=== PATIENT | female | born 1985 | race Caucasian/White ===

== ENCOUNTER 2018-04-27 02:21 | Inpatient (IN) | payer BC ==
[2018-04-27] MEDS ORDERED: ALUM & MAG HYDROX-SIMETHICONE 30 ML, LIDOCAINE VISCOUS 2% 15 ML PO ONE ×2 (02:43)
[2018-04-27] MEDS ORDERED: MORPHINE SULFATE INJ 10 MG/ML VIAL IV ONE ×3 (02:43→08:11)
[2018-04-27] MEDS ORDERED: SUCRALFATE 1 GM/10 ML 1 GM UD PO ONE (02:43)
--- NOTE | 2018-04-27 02:43 | ED.PDOC ---
History of Present Illness - General Chief Complaint: Abdominal Pain Stated Complaint: woke up with "my stomach hurting" Time Seen by Provider: 04/27/18 02:29 Information Source: patient Exam Limitations: no limitations - History of Present Illness Initial Comments: Darlene Jernigan 32 y/o female stated that she woke up about 30-60 minutes ago with constant sharp pains epigastrium radiating down to her lower abdomen.No nausea/vomiting,had loose stools once tonight,no dysuria or constipation.Had sme symptoms in the past treated for GE reflux and was scheduled for sonogram but did not show up for test and since then no repeat episode except for tonight. Abdominal Pain Onset Location: other - lower abdomen Pain Radiation: periumbilical Quality: moderate, sharpness, steady Timing/Duration: 1-3 hours Improving Factors: nothing Worsening Factors: nothing Associated Symptoms: other - see hpi Review of Systems - Review of Systems Constitutional: States: no symptoms reported EENTM: States: no symptoms reported Respiratory: States: no symptoms reported Cardiology: States: no symptoms reported Gastrointestinal/Abdominal: States: see HPI Genitourinary: States: no symptoms reported Musculoskeletal: States: no symptoms reported Skin: States: no symptoms reported Neurological: States: no symptoms reported Past Medical History (General) - Patient Medical History Hx Diabetes: Yes - GDM Hx Renal Disease: No Surgical History: no surgical history - Social History Hx Substance Use: No Hx Physical Abuse: No Hx Emotional Abuse: No - Activities of Daily Living Patient Lives Alone: No - Female History Hx Last Menstrual Period: 04/12/13 Patient : No Family Medical History - Family History Mother Hx Family Hypertension: Yes Hx Family Diabetes: Yes Hx Family;Other: DAD-multiple sclerosis Maternal Family History: No Known Physical Exam - Physical Exam General Appearance: Alert, Comfortable, No apparent distress Eyes, Ears, Nose, Throat Exam: normal ENT inspection Neck: non-tender, supple, normal inspection Respiratory: chest non-tender, lungs clear, normal breath sounds, no respiratory distress Cardiovascular/Chest: normal peripheral pulses, regular rate, rhythm, no murmur Peripheral Pulses: No deficit Gastrointestinal/Abdominal: normal bowel sounds, soft, tenderness - epigastium and mid abdomen Back Exam: no CVA tenderness, no vertebral tenderness Extremity: no pedal edema, no calf tenderness Neurologic: alert, oriented x 3 Skin Exam: normal color, warm/dry Progress - Progress Progress: 04/27/18 05:45 04/27/18 02:43 IV Care:Saline Lock per Protoc QSHIFT CARDIAC ENZYME GROUP Stat COMPLETE METABOLIC PROFILE Stat LIPASE Stat 04/27/18 02:46 HCG,QUALITATIVE URINE Stat Laboratory Results - last 24 hr 04/27/18 04/27/18 04/27/18 02:40 02:43 02:43 WBC 9.3 RBC 4.99 Hgb 14.6 Hct 43.1 MCV 86.4 MCH 29.2 MCHC 33.8 RDW 13.7 Plt Count 288 MPV 7.8 Absolute Neuts (auto) 6.00 Absolute Lymphs (auto) 2.10 Absolute Monos (auto) 0.70 Absolute Eos (auto) 0.40 Absolute Basos (auto) 0.10 Neutrophils % 64.6 Lymphocytes % 23.0 Monocytes % 7.2 Eosinophils % 4.1 Basophils % 1.1 Sodium 138 Potassium 3.4 L Chloride 102 Carbon Dioxide 25 Anion Gap 14.4 BUN 22 H Random Glucose 114 H Serum Osmolality 279.9 Calcium 9.4 Total Bilirubin 0.5 AST 20 ALT 32 Alkaline Phosphatase 49 Creatine Kinase 93 CK-MB (CK-2) 1.3 CK-MB (CK-2) % Not Reportable Troponin I < 0.02 Serum Total Protein 7.5 Albumin 4.4 Globulin 3.1 Albumin/Globulin Ratio 1.4 Serum HCG, Qual Urine Color Yellow Urine Appearance Clear Urine pH 5.5 Ur Specific [place] >= 1.030 Urine Protein Negative Urine Glucose (UA) Negative Urine Ketones 15 H Urine Blood Small H Urine Nitrite Negative Urine Bilirubin Negative Urine Urobilinogen 0.2 Ur Leukocyte Esterase Negative Urine RBC 3-5 H Urine WBC 1-3 Ur Epithelial Cells 5-10 Urine Bacteria 0 04/27/18 04:24 WBC RBC Hgb Hct MCV MCH MCHC RDW Plt Count MPV Absolute Neuts (auto) Absolute Lymphs (auto) Absolute Monos (auto) Absolute Eos (auto) Absolute Basos (auto) Neutrophils % Lymphocytes % Monocytes % Eosinophils % Basophils % Sodium Potassium Chloride Carbon Dioxide Anion Gap BUN Random Glucose Serum Osmolality Calcium Total Bilirubin AST ALT Alkaline Phosphatase Creatine Kinase CK-MB (CK-2) CK-MB (CK-2) % Troponin I Serum Total Protein Albumin Globulin Albumin/Globulin Ratio Serum HCG, Qual Negative Urine Color Urine Appearance Urine pH Ur Specific [place] Urine Protein Urine Glucose (UA) Urine Ketones Urine Blood Urine Nitrite Urine Bilirubin Urine Urobilinogen Ur Leukocyte Esterase Urine RBC Urine WBC Ur Epithelial Cells Urine Bacteria - Results/Orders Results/Orders: Vital Signs - 8 hr 04/27/18 04/27/18 02:38 03:22 Temperature 97.9 F Pulse Rate [ 94 H 52 L Right] Respiratory 18 Rate Blood Pressure 139/100 106/68 [Left Arm] O2 Sat by Pulse 96 Oximetry - EKG/XRAY/CT CT Ordered: Yes - abd/p-appendicolith,mildly dilated appendix 8-9 mm Departure - Departure Clinical Impression: Appendicolith Abdominal pain Qualifiers: Abdominal location: lower abdomen, unspecified Qualified Code(s): R10.30 - Lower abdominal pain, unspecified Time of Disposition: 05:48 Disposition: Admit Patient Condition: Good Departure Forms: Patient Portal Self Enrollment Referrals: Rowdy Robles MD [Primary Care Provider] - 1-2 Weeks Home Medications: Ambulatory Orders Vit W/ Docusate-Fe Fu [Pnv Ferrous Fumarate/Docu 29-1 mg] 1 tab PO DAILY 12/20/13 HYDROcodone 5MG/APAP 325MG [[place] 5/325] 1 tab PO .Q8 PRN #10 tab 12/22/13 Ibuprofen [Motrin] 600 mg PO .Q8 PRN #20 tab 12/22/13 Decision To Admit - Decistion To Admit Decision to Admit Reason: Admit from ER Decision to Admit Date: 04/27/18 - D/W Dr. Mccann-Surgeon Decision to Admit Time: 05:47
[2018-04-27] MEDS ORDERED: ALUM & MAG HYDROX-SIMETHICONE 30 ML UD ONE (03:00)
[2018-04-27] MEDS ORDERED: LIDOCAINE HCL 2% (MOUTH-THROAT) 15 ML UD ONE (03:00)
[2018-04-27] MEDS: HYOSCYAMINE SULFATE 0.5 MG/ML VIAL IV ONE ×2 (03:07→06:32)
--- NOTE | 2018-04-27 04:47 | CT ---
CT abdomen and pelvis without contrast on 04/27/2018 CLINICAL INDICATION: Upper abdominal pain TECHNIQUE: Multiple axial images are obtained throughout the abdomen and pelvis without the administration of contrast. This exam was performed according to our departmental dose-optimization program, which includes automated exposure control, adjustment of the mA and/or kV according to patient size and/or use of iterative reconstruction technique. Total DLP is 1280.77 mGy*cm. COMPARISON: None FINDINGS: Abdomen: There is minimal basilar atelectasis. The lung bases are otherwise clear. There are no renal or ureteral stones and no hydronephrosis. The unenhanced solid abdominal organs are unremarkable. There is no abdominal adenopathy. There is a tiny umbilical hernia containing only fat. There is no free fluid or free air within the abdomen. The abdominal portion of the GI tract is unremarkable. Pelvis: Appendicoliths are noted within the appendiceal base. The appendix is mildly dilated measuring 8-9 mm in diameter. There is no significant fat stranding but the appearance raises a question of early acute appendicitis. If surgery is not initially considered would recommend short-term follow-up CT with IV and oral contrast. Intrauterine device is noted in the uterus. Pelvic organs otherwise appear unremarkable by CT. There is no free fluid in the pelvis. There is no pelvic adenopathy. Pelvic portion of the GI tract is otherwise unremarkable. No bony abnormality is noted. IMPRESSION: 1. Appendicoliths within a mildly dilated appendix raising a question of early acute appendicitis. If surgery is not initially considered, would recommend at least close clinical follow-up and short-term follow-up CT with IV and oral contrast could better evaluate. 2. Otherwise no acute abnormality. Electronically signed by: Venancio Lawrence 04/27/2018 4:46 AM CDT
--- NOTE | 2018-04-27 07:01 | HP ---
CHIEF COMPLAINT: Abdominal pain. HISTORY OF PRESENT ILLNESS: The patient is a healthy 32-year-old female who was in her normal state of health until yesterday when she did not really feel well. Early this morning, after midnight, she developed abdominal pain in the lower abdomen. There was no nausea or vomiting. She did have one bout of loose stool yesterday. There is no one else at home that is sick. She has had no previous episodes of like illness, but was scheduled for an ultrasound for abdominal discomfort which she failed to get. PAST MEDICAL HISTORY: 1. Childbirth times 2. 2. Diabetes associated with her pregnancies. PAST SURGICAL HISTORY: She has had no other surgeries. CURRENT MEDICATIONS: She takes no medications. ALLERGIES: NO KNOWN DRUG ALLERGIES. FAMILY HISTORY: Positive for hypertension, diabetes, multiple sclerosis and possibly ulcerative colitis in her maternal grandmother. SOCIAL HISTORY: She is and works for [employer]. She does not use illicit drugs, does not smoke. She drinks rarely. REVIEW OF SYSTEMS: Noncontributory except for a history of chronic constipation and intermittently loose stools with lower abdominal pain. There is no history of hematemesis, hematochezia. She has no urinary tract symptoms. She has no shortness of breath or chest pain. PHYSICAL EXAMINATION: GENERAL: The patient is awake, alert, cooperative, in minimal distress. VITAL SIGNS: The patient is currently afebrile, normotensive. HEENT: Sclerae nonicteric. Mucous membranes moist. CHEST: Equal breath sounds bilaterally. HEART: Regular rate and rhythm. ABDOMEN: Soft. There is tenderness in the right lower quadrant with some mild guarding. PELVIC/RECTAL: Deferred. EXTREMITIES: Without cyanosis, clubbing or edema. LABORATORY: White count is normal at 9.3 with 64% neutrophils. Hemoglobin 14.6 , platelet count 288,000. Glucose 114. Potassium 3.4. CK, CK-MB within normal limits. Troponin within normal limits. HCG was negative. Urine specific gravity greater than 1.030. Otherwise, there were 3 to 5 red cells, 1 to 3 while cells, no bacteria. Leukocyte esterase was negative. CT scan of the abdomen reveals appendix mildly dilated with appendicolith, but no inflammatory changes or free fluid around it. No free air or other inflammatory changes noted. ASSESSMENT: 1. Right lower quadrant abdominal pain, most likely early appendicitis. PLAN: The risks, benefits and alternatives to laparoscopic appendectomy versus antibiotic treatment for early appendicitis were discussed with the patient in the presence of her . Their decision is to proceed with appendectomy and this will be done today. She was also given IV Mefoxin and has been NPO. #[id number] [facility]
[2018-04-27] MEDS ORDERED: MORPHINE SULFATE INJ 10 MG/ML VIAL ONE (07:46)
[2018-04-27] MEDS: LACTATED RINGERS 1,000 ML IVS PRN ×2 (09:14→21:16)
[2018-04-27] MEDS ORDERED: cefOXitin SODIUM 2 GM INJ IVPB ONE ×3 (09:15→19:39)
[2018-04-27] MEDS ORDERED: SODIUM CHL 0.9% 50ML MIN-BAG+ 50 ML IVPB ONE ×3 (09:15→19:38)
[2018-04-27] MEDS: cefOXitin SODIUM 2 GM in SODIUM CHL 0.9% 50ML MIN-BAG+ 50 ML IVPB SCH ×2 (09:16→17:31)
[2018-04-27] MEDS ORDERED: PROPOFOL 200 MG/20 ML VIAL IV ONE (10:00)
[2018-04-27] MEDS ORDERED: LIDOCAINE 1% 10 ML VIAL INJ ONE (10:00)
[2018-04-27] MEDS ORDERED: raNITIdine HCL INJ 25 MG/ML VIAL IV ONE (10:00)
[2018-04-27] MEDS ORDERED: ONDANSETRON INJ 4 MG/2 ML VIAL IV ONE (10:00)
[2018-04-27] MEDS ORDERED: HYDROmorphone HCL INJ 2 MG/ML VIAL ONE (11:20)
[2018-04-27] MEDS ORDERED: HYDROmorphone HCL INJ 2 MG/ML VIAL IV ONE (11:20)
[2018-04-27] MEDS ORDERED: MIDAZOLAM INJ 2 MG/2 ML VIAL ONE (11:25)
[2018-04-27] MEDS ORDERED: fentaNYL CITRATE INJ 50 MCG/ML AMP ONE (11:26)
[2018-04-27] MEDS ORDERED: ROCURONIUM BROMIDE 10 MG/ML VIAL ONE (11:32)
[2018-04-27] MEDS ORDERED: SUCCINYLCHOLINE CHLORIDE 200 MG/10 ML VIAL ONE (11:33)
[2018-04-27] MEDS ORDERED: SUGAMMADEX SODIUM 200 MG/2 ML VIAL IV ONE (11:34)
[2018-04-27] MEDS ORDERED: SODIUM CHLORIDE 0.9% (FLUSH) 10 ML SYG IV PRN (11:55)
[2018-04-27] MEDS ORDERED: IV SET AND CAP CHANGE INJ INJ SCH (12:00)
[2018-04-27] MEDS ORDERED: BUPIVACAINE 0.25% W/EPI 50 ML VIAL INJ ONE (13:15)
[2018-04-27] MEDS ORDERED: ONDANSETRON INJ 4 MG/2 ML VIAL IV PRN (14:03)
[2018-04-27] MEDS ORDERED: LACTATED RINGERS 1,000 ML ONE (14:11)
--- NOTE | 2018-04-27 14:30 | OP ---
DATE OF PROCEDURE: 04/27/18 PREOPERATIVE DIAGNOSIS: 1. Right lower quadrant abdominal pain. 2. Abnormal CT scan suspicious for appendicitis and with an appendicolith. POSTOPERATIVE DIAGNOSIS: 1. Right lower quadrant abdominal pain. 2. Abnormal CT scan suspicious for appendicitis and with an appendicolith. 3. Acute appendicitis. PROCEDURE: 1. Laparoscopic appendectomy. SURGEON: Maynor Mccann MD. DISTRIBUTION OPERATIONS MANAGER: None. ANESTHESIA: General endotracheal anesthesia and local infiltration of 0.25% Marcaine with epinephrine. INDICATION: The patient is a 32-year-old female who did not feel well yesterday. Early this morning, she developed abdominal pain and presented to the Emergency Room with a normal white count, no fever, but CT scan was ordered which revealed the changes of swelling of the appendix and an appendicolith. She was admitted, hydrated intravenously, started on Mefoxin and was brought to the Surgical Suite this afternoon for laparoscopic appendectomy after the risks , benefits and alternatives of the procedure were discussed and accepted by the patient in the presence of her . FINDINGS: The appendix was indurated, somewhat distended. The appendicolith could be palpated distal to the staple line. No other pathology was identified. A small amount of purulent drainage which was removed using a 4x4. PROCEDURE: After adequate general endotracheal anesthesia was obtained, the patient was prepped and draped in the usual sterile manner. A surgical time- out was taken. The infraumbilical area was infiltrated with local anesthesia. A curvilinear incision was fashioned and carried down through the subcutaneous tissue to the midline fascia using blunt dissection. Traction sutures were placed on either side of the midline. A small incision was made in the midline fascia. The peritoneum was opened bluntly. Oseas trocar was introduced under direct vision into the abdominal cavity and fixed in place with a 20 mL balloon. CO2 was then insufflated until a pressure of 12 mmHg was reached and the abdomen was tympanitic in all four quadrants. When this was done, the laparoscope was introduced. The patient was then placed in the Trendelenburg position. The pelvis and right lower quadrant were inspected. At this point, suprapubic 5-mm trocar was placed under direct vision in the usual manner. The right lower quadrant was explored and the appendix was identified. At this point, the left lower quadrant port was placed under direct vision. When this was done, the appendix was elevated. The mesoappendix was divided bluntly at the base of the appendix and the Endo-JEFF with a vascular load was introduced and the base of the appendix was stapled. When this was done, a second firing was performed on the mesoappendix. The appendix was brought out through the left lower quadrant port in an EndoCatch bag under direct vision in the usual manner. When this was done, the right lower quadrant was inspected. There was some bleeding and 4x4 was placed over it and held with pressure. The blood was removed with the 4x4 and a second 4x4 was run into the pelvis and removed the small amount of seropurulent fluid. The sponges were removed. Again, the base of the appendix was inspected. Adequate hemostasis was noted there. At this point, the left lower quadrant port was removed under direct vision and the port site fascia was closed with two simple sutures of 0 Vicryl placed using the EndoClose device. When these were tightened and tied, hemostasis was noted to be good. At this point, the suprapubic port was removed under direct vision. Adequate hemostasis was noted. At this point, the CO2, the laparoscope and the infraumbilical port were removed. The infraumbilical port site fascia was approximated with a single [id number] suture of 0 Vicryl. Subcutaneous tissues were all irrigated copiously with saline. Skin edges were loosely stapled with the skin stapler. Sterile dressings were applied. The patient was awakened and taken to the Recovery Room in stable condition. Estimated blood loss was 25 mL. All sponge, needle and instrument counts were correct. #[id number] [facility]
[2018-04-27] MEDS: ENOXAPARIN SODIUM 40 MG/0.4 ML SYG SUBCU SCH (15:00)
[2018-04-27] MEDS: HYDROmorphone HCL INJ 2 MG/ML VIAL IV PRN ×3 (15:00→21:19)
[2018-04-27] MEDS: PANTOPRAZOLE SODIUM IV 40 MG VIAL IV SCH (15:00)
[2018-04-28] MEDS: HYDROmorphone HCL INJ 2 MG/ML VIAL IV PRN ×8 (00:11→23:18)
[2018-04-28] MEDS: cefOXitin SODIUM 2 GM in SODIUM CHL 0.9% 50ML MIN-BAG+ 50 ML IVPB SCH ×3 (01:07→18:08)
[2018-04-28] MEDS: LACTATED RINGERS 1,000 ML IVS PRN ×3 (04:15→18:20)
[2018-04-28] MEDS ORDERED: SODIUM CHL 0.9% 50ML MIN-BAG+ 50 ML IVPB ONE ×2 (07:20→18:06)
[2018-04-28] MEDS ORDERED: cefOXitin SODIUM 2 GM INJ IVPB ONE ×2 (07:20→18:07)
[2018-04-28] MEDS: ENOXAPARIN SODIUM 40 MG/0.4 ML SYG SUBCU SCH (09:21)
[2018-04-28] MEDS ORDERED: MAGNESIUM HYDROXIDE 30 ML UD PO ONE (11:11)
[2018-04-28] MEDS: PANTOPRAZOLE SODIUM IV 40 MG VIAL IV SCH (14:37)
[2018-04-29] MEDS ORDERED: cefOXitin SODIUM 2 GM INJ IVPB ONE ×2 (00:23→07:29)
[2018-04-29] MEDS ORDERED: SODIUM CHL 0.9% 50ML MIN-BAG+ 50 ML IVPB ONE ×2 (00:23→07:28)
[2018-04-29] MEDS: cefOXitin SODIUM 2 GM in SODIUM CHL 0.9% 50ML MIN-BAG+ 50 ML IVPB SCH ×2 (01:15→08:46)
[2018-04-29] MEDS: HYDROmorphone HCL INJ 2 MG/ML VIAL IV PRN ×3 (02:49→08:46)
[2018-04-29] MEDS: LACTATED RINGERS 1,000 ML IVS PRN (03:10)
[2018-04-29] MEDS ORDERED: MAGNESIUM HYDROXIDE 30 ML UD PO ONE (03:35)
[2018-04-29] MEDS ORDERED: METOCLOPRAMIDE HCL INJ 10 MG/2 ML VIAL IV ONE (03:35)
[2018-04-29] MEDS: ENOXAPARIN SODIUM 40 MG/0.4 ML SYG SUBCU SCH (08:46)
[2018-04-29 10:19] VITALS: BP 129/76; TEMP 98.4; O2SAT 96
--- NOTE | 2018-04-29 10:34 | DS ---
FINAL DIAGNOSIS: 1. Acute appendicitis pending pathology report. SURGICAL PROCEDURE: On 04/27/18, the patient underwent laparoscopic appendectomy. HISTORY OF PRESENT ILLNESS: The patient is a healthy 32-year-old female who was in her normal state of health until yesterday when she did not really feel well. Early this morning, after midnight, she developed abdominal pain in the lower abdomen. There was no nausea or vomiting. She did have one bout of loose stool yesterday. There is no one else at home that is sick. She has had no previous episodes of like illness, but was scheduled for an ultrasound for abdominal discomfort which she failed to get. LABORATORY: On the day prior to discharge, her white count was 5,900 with 63% neutrophils. Hemoglobin 12.5, platelet count 235,000. HOSPITAL COURSE: The patient was admitted to the Floor from the Emergency Room. She was hydrated and given IV Mefoxin. Later that afternoon, she was brought to the Surgical Suite where she underwent the laparoscopic appendectomy without difficulty. Mcfarland catheter was removed postoperatively. By the next morning, she was tolerating clear liquids, taking pain medicine on a routine basis. She was afebrile. Her white count was normal. She had no fever. She was tolerating clear liquids, but had not passed flatus and was quite uncomfortable. She was given a dose of Milk of Magnesia later that night, she passed gas later that afternoon. Overnight, she developed some heartburn and was given another dose of Milk of Magnesia and a dose of Reglan. She had multiple bowel movements and the second postoperative morning, she was discharged home. CONDITION AT DISCHARGE: Improved. PROGNOSIS: Excellent pending pathology report. DISCHARGE PLAN: She was discharged home on a regular diet and told to push fluids. She was told she can shower, but not tub bath. She was told she can ambulate, but do no lifting or exercise. She is appointed to come back and see me on 05/09/18 at 2:30 in the afternoon. She is discharged with a prescription for Ceftin for 8 doses and Tylenol #3 as needed for pain. She is instructed to call me if she develops nausea, vomiting, fever, chills, increasing abdominal pain, drainage from her wounds or has other questions or problems. #[id number] [facility]
== END 2018-04-29 11:40 | disposition home or self-care (01) | DRG 343 ==
LOC: ER 02:21 → MS 06:59 → OBSVTOIN 06:59
PROVIDERS: ADMIT Surgery; ATTEND Surgery
PROC: 0DTJ4ZZ Resection of Appendix, Percutaneous Endoscopic Approach (ICD-10-PCS; principal; 2018-04-27 12:54)
DX: K35.80 Unspecified acute appendicitis (principal); K59.09 Other constipation

== ENCOUNTER → 2018-05-17 | Outpatient (CLI) | payer BC ==
--- NOTE | 2018-05-17 11:57 | US ---
EXAM DESCRIPTION: Right upper quadrant abdominal sonogram limited CLINICAL HISTORY: UNSPECIFIED ABDOMINAL PAIN COMPARISON: CT abdomen and pelvis April 27, 2018 TECHNIQUE: Right upper quadrant ultrasound was performed. FINDINGS: Pancreas: Visualized portions of the pancreas are unremarkable. Bowel gas obscures some areas. Aorta/inferior vena cava: No aortic aneurysm. Normal inferior vena cava. Liver: The liver is homogeneous in texture with normal echogenicity of the hepatic parenchyma. No focal liver lesion or intrahepatic bile duct dilatation. No liver surface irregularity. Normal appearance of the portal vein and hepatic veins. Gallbladder: Gallbladder appears normal in size with single echogenic focus nondependent consistent with a polyp 3 mm. No stones with shadowing. No gallbladder wall thickening Common bile duct: Normal caliber measuring 5.3 mm. Right kidney: Renal length is 12 cm. Normal cortical echogenicity. Cortical thickness is normal. No hydronephrosis is seen. No renal mass or shadowing calculus. IMPRESSION: 3 mm polyp in the gallbladder. Otherwise unremarkable sonogram of the right upper abdomen. Electronically signed by: Ok Warner MD 05/17/2018 11:55 AM CDT
== END ==
LOC: US 09:31
PROVIDERS: ATTEND General Practice
DX: R10.9 Unspecified abdominal pain (principal); K82.4 Cholesterolosis of gallbladder

== ENCOUNTER 2019-11-24 10:55 | Emergency (ER) | payer BC ==
--- NOTE | 2019-11-24 11:25 | ED.PDOC ---
History of Present Illness - General Chief Complaint: Abdominal Pain Stated Complaint: Abd pain and diarrhea Time Seen by Provider: 11/24/19 11:20 Information Source: patient Exam Limitations: no limitations Additional Information: Pt says she's had abd pain since Wednesday (5 days ago). She also reports watery stool. She says she has discomfort with BM. She also feels urinary urgency, but no dysuria. She denies F/C. She says her periods are "normally not normal," and have been unchanged. Pt denies vaginal discharge. Pt says it is worsened with eating. She's been on diet since last January. She says her IUD has been out of position for "several years," and there are plans soon to take her to OR to find the IUD. - History of Present Illness Abdominal Pain Onset Location: generalized abdomen Review of Systems - Review of Systems Constitutional: States: no symptoms reported. Denies: chills, fever, malaise EENTM: States: no symptoms reported Respiratory: States: no symptoms reported Cardiology: States: no symptoms reported Gastrointestinal/Abdominal: States: abdominal pain, diarrhea. Denies: constipation, nausea, vomiting Genitourinary: Denies: discharge, dysuria, frequency, hematuria Musculoskeletal: States: no symptoms reported Skin: States: no symptoms reported Neurological: States: no symptoms reported Endocrine: States: no symptoms reported Hematologic/Lymphatic: States: no symptoms reported Past Medical History (General) - Patient Medical History Hx Seizures: No Hx Stroke: No Hx Dementia: No Hx Asthma: No Hx of COPD: No Hx Cardiac Disorders: No Hx Congestive Heart Failure: No Hx Pacemaker: No Hx Hypertension: No Hx Thyroid Disease: No Hx Diabetes: No Hx Gastroesophageal Reflux: No Hx Renal Disease: No Hx Cancer: No Hx of HIV: No Hx Hepatitis C: No Hx MRSA: No - Vaccination History Hx Tetanus, Diphtheria Vaccination: No Hx Influenza Vaccination: No Hx Pneumococcal Vaccination: No - Social History Hx Tobacco Use: No Hx Alcohol Use: No Hx Substance Use: No Hx Substance Use Treatment: No Hx Depression: No Hx Physical Abuse: No Hx Emotional Abuse: No - Female History Hx Last Menstrual Period: 04/12/13 Patient : No Expected Date of Delivery:: 12/26/13 Family Medical History - Family History Maternal Family History: No Known Mother Hx Family Hypertension: Yes Hx Family Diabetes: Yes Hx Family;Other: DAD-multiple sclerosis Physical Exam - Physical Exam General Appearance: Alert, Comfortable, No apparent distress, Well Developed, Well Groomed, Well Hydrated, Well Nourished Eyes, Ears, Nose, Throat Exam: normal ENT inspection Neck: full range of motion, supple, normal inspection Respiratory: chest non-tender, lungs clear, normal breath sounds, no respiratory distress, no accessory muscle use Cardiovascular/Chest: normal peripheral pulses, regular rate, rhythm, no edema, no gallop, no JVD, no murmur Gastrointestinal/Abdominal: normal bowel sounds, soft, no organomegaly, no pulsatile mass, tenderness - Diffuse Neurologic: alert, normal mood/affect, oriented x 3 Skin Exam: normal color Progress - Progress Progress: 11/24/19 13:16 11/24/19 11:21 Hold Metformin x 48Hrs [id number] Laboratory Results - last 24 hr 11/24/19 11/24/19 11/24/19 11:29 11:29 11:29 WBC 5.8 RBC 5.30 Hgb 15.3 Hct 45.4 MCV 85.7 MCH 28.9 MCHC 33.7 RDW 13.6 Plt Count 311 MPV 8.0 Absolute Neuts (auto) 3.80 Absolute Lymphs (auto) 1.50 Absolute Monos (auto) 0.40 Absolute Eos (auto) 0.10 Absolute Basos (auto) 0.00 Neutrophils % 65.3 Lymphocytes % 25.9 Monocytes % 6.4 Eosinophils % 1.7 Basophils % 0.7 Sodium 138 Potassium 3.7 Chloride 102 Carbon Dioxide 28 Anion Gap 11.7 L BUN 16 Creatinine 0.68 BUN/Creatinine Ratio 23.5 H Random Glucose 72 Serum Osmolality 275.4 Calcium 9.5 Total Bilirubin 0.5 AST 39 ALT 74 H Alkaline Phosphatase 118 Serum Total Protein 8.1 Albumin 4.5 Globulin 3.6 H Albumin/Globulin Ratio 1.3 Lipase 30 Serum HCG, Qual Negative Urine Color Urine Appearance Urine pH Ur Specific [place] Urine Protein Urine Glucose (UA) Urine Ketones Urine Blood Urine Nitrite Urine Bilirubin Urine Urobilinogen Ur Leukocyte Esterase Urine RBC Urine WBC Ur Epithelial Cells Urine Bacteria 11/24/19 11:34 WBC RBC Hgb Hct MCV MCH MCHC RDW Plt Count MPV Absolute Neuts (auto) Absolute Lymphs (auto) Absolute Monos (auto) Absolute Eos (auto) Absolute Basos (auto) Neutrophils % Lymphocytes % Monocytes % Eosinophils % Basophils % Sodium Potassium Chloride Carbon Dioxide Anion Gap BUN Creatinine BUN/Creatinine Ratio Random Glucose Serum Osmolality Calcium Total Bilirubin AST ALT Alkaline Phosphatase Serum Total Protein Albumin Globulin Albumin/Globulin Ratio Lipase Serum HCG, Qual Urine Color Yellow Urine Appearance Clear Urine pH 7.0 Ur Specific [place] 1.015 Urine Protein Negative Urine Glucose (UA) Negative Urine Ketones Negative Urine Blood Trace-intact H Urine Nitrite Negative Urine Bilirubin Negative Urine Urobilinogen 0.2 Ur Leukocyte Esterase Negative Urine RBC 0 Urine WBC 0 Ur Epithelial Cells 10-20 Urine Bacteria 1+ Findings Reporting MD: Nicola Bagley Fellow MD: Not available Dictation Time: Pulp Grinder Feeder: Not available Lawn Mower Sharpener Date: EXAM DESCRIPTION: Abdomen/Pelvis w/Contrast CLINICAL HISTORY: abd pain COMPARISON: April 27, 2018 TECHNIQUE: Postcontrast CT images of the abdomen and pelvis are obtained using standard imaging protocol. This exam was performed according to our departmental dose-optimization program, which includes automated exposure control, adjustment of the mA and/or kV according to patient size and/or use of iterative reconstruction technique . FINDINGS: Lung bases are unremarkable. The liver, spleen, pancreas, adrenal glands, and contracted gallbladder are unremarkable. Abdominal vasculature are unremarkable. Kidneys show normal cortical enhancement. No nephrolithiasis. No ureteral calcification or obstruction. Urinary bladder is normally distended and unremarkable. T-shaped IUD is seen in the endometrial canal of the uterus. The ovaries are unr emarkable. Postsurgical changes from interval appendectomy are seen. Stomach is contracted and unremarkable. No small bowel obstruction or bowel wall thickening is seen. The descending to sigmoid colon is decompressed. Mild scattered diverticuli. Hyperdense diverticulum in the left lower quadrant sigmoid colon seen with mild adjacent mesenteric fat stranding. No free intraperitoneal air. No abnormal drainable fluid collections. No pathologic lymphadenopathy. Osseous structures show no aggressive bony lesions. IMPRESSION: Mild scattered colon diverticulosis. [facility] [employer] [address] [facility] [place], [place] T [phone] [email or web address] - Report exported on Nov 24, 2019 13:18:08 [id number] - Page 2 of 2 Mild fat stranding in the mesentery associated with hyperdense diverticulum in the sigmoid colon in the left lower pelvis suggesting mild uncomplicated acute diverticulitis. Interval appendectomy changes. Other findings are stable from previous Electronically signed by: Nicola Bagley MD 11/24/2019 12:50 PM CDT Workstation: [id number] 11/24/19 13:47 Discussed all results with pt. I recommended d/c of Bactrim and that I would rx new abx's. I asked that she speak to her PCP about referral to GI. Pt expressed understanding and had no further questions. On discharge, pt was in no distress and had unremarkable VS's. Departure - Departure Clinical Impression: Diverticulitis large intestine, History of appendectomy, Diverticulitis Time of Disposition: 13:49 Disposition: Discharge to Home or Self Care Condition: Good Departure Forms: ED Discharge - Pt. Copy, Patient Portal Self Enrollment Instructions: DI for Abdominal Pain-Adult Diet: resume usual diet Activity: increase activity as tolerated Referrals: Rowdy Robles MD [Active Staff] - 1-2 Weeks Prescriptions: Ondansetron Tab [Zofran Tab] 4 mg PO Q6HRS #14 tab Tramadol HCl [Ultram] 50 mg PO Q6HRS #20 tab Ciprofloxacin [Cipro] 500 mg PO BID #14 tab Metronidazole [Flagyl] 375 mg PO TID #21 cap Home Medications: Ambulatory Orders BuPROPion SR [Wellbutrin SR] 11/24/19 Ciprofloxacin [Cipro] 500 mg PO BID #14 tab 11/24/19 Metronidazole [Flagyl] 375 mg PO TID #21 cap 11/24/19 Ondansetron Tab [Zofran Tab] 4 mg PO Q6HRS #14 tab 11/24/19 Tramadol HCl [Ultram] 50 mg PO Q6HRS #20 tab 11/24/19 cloNAZepam [Klonopin] 11/24/19
--- NOTE | 2019-11-24 12:51 | CT ---
EXAM DESCRIPTION: Abdomen/Pelvis w/Contrast CLINICAL HISTORY: abd pain COMPARISON: April 27, 2018 TECHNIQUE: Postcontrast CT images of the abdomen and pelvis are obtained using standard imaging protocol. This exam was performed according to our departmental dose-optimization program, which includes automated exposure control, adjustment of the mA and/or kV according to patient size and/or use of iterative reconstruction technique . FINDINGS: Lung bases are unremarkable. The liver, spleen, pancreas, adrenal glands, and contracted gallbladder are unremarkable. Abdominal vasculature are unremarkable. Kidneys show normal cortical enhancement. No nephrolithiasis. No ureteral calcification or obstruction. Urinary bladder is normally distended and unremarkable. T-shaped IUD is seen in the endometrial canal of the uterus. The ovaries are unremarkable. Postsurgical changes from interval appendectomy are seen. Stomach is contracted and unremarkable. No small bowel obstruction or bowel wall thickening is seen. The descending to sigmoid colon is decompressed. Mild scattered diverticuli. Hyperdense diverticulum in the left lower quadrant sigmoid colon seen with mild adjacent mesenteric fat stranding. No free intraperitoneal air. No abnormal drainable fluid collections. No pathologic lymphadenopathy. Osseous structures show no aggressive bony lesions. IMPRESSION: Mild scattered colon diverticulosis. Mild fat stranding in the mesentery associated with hyperdense diverticulum in the sigmoid colon in the left lower pelvis suggesting mild uncomplicated acute diverticulitis. Interval appendectomy changes. Other findings are stable from previous Electronically signed by: Nicola Bagley MD 11/24/2019 12:50 PM CDT
[2019-11-24 14:10] VITALS: BP 142/95; TEMP 98.8; O2SAT 98
== END 2019-11-24 14:10 | disposition home or self-care (01) ==
LOC: ER 10:55
DX: K57.32 Diverticulitis of large intestine without perforation or abscess without bleeding (principal)

== ENCOUNTER 2020-02-11 12:44 | Emergency (ER) | payer SELFPAY ==
[2020-02-11] MEDS ORDERED: IBUPROFEN 200 MG TAB PO ONE (13:23)
--- NOTE | 2020-02-11 13:58 | CT ---
PROCEDURE: CT Head Without Intravenous Contrast CLINICAL INDICATION: The patient is 34 years old and is Female; rt sided headache, subj rt sided weakness MAIN TECHNIQUE: Axial computed tomography images of the head/brain without intravenous contrast. Sagittal and coronal reformatted images were created and reviewed. This CT exam was performed using one or more of the following dose reduction techniques: automated exposure control, adjustment of the mA and/or kV according to patient size, and/or use of iterative reconstruction technique. COMPARISON: No relevant prior studies available. FINDINGS: BRAIN: Unremarkable. No acute intracranial hemorrhage identified. No significant white matter disease. No edema. The mac/white matter differentiation is intact. No intra- or extra-axial fluid collections are seen. MIDLINE SHIFT: None. VENTRICLES: No acute abnormality identified. No hydrocephalus. BONES/JOINTS: Unremarkable. No calvarial fracture. SOFT TISSUES: The soft tissues of the scalp are unremarkable. SINUSES: The visualized paranasal sinuses are clear. MASTOID AIR CELLS: Unremarkable as visualized. No mastoid effusion. IMPRESSION: No acute intracranial abnormality identified. Electronically signed by: Stephon Camara MD 02/11/2020 1:57 PM CDT
--- NOTE | 2020-02-11 15:19 | ED.PDOC ---
History of Present Illness - General Chief Complaint: Headache Time Seen by Provider: 02/11/20 12:48 Source: patient Exam Limitations: no limitations - History of Present Illness Initial Comments: The patient is a 34-year-old female presented emergency room secondary to headache that is worsened over the last couple of days. The patient was seen 3 days ago with her primary care doctor secondary to concern for possible early Cristobal's palsy on the right. At that point in time the patient was having more pain to the lateral upper aspect of her orbit. No vision changes. No pain with extraocular movements. She is also having some pain in her right ear around that time. No rash. The patient has a mild temperature elevation of 100.2 here today. No rhinorrhea. No change in taste. No real focal neurological changes otherwise. On physical exam today there may be a very slight asymmetry in her smile with a very slight deficit towards the right. No difficulty with closing her eyes. She is able to move move her forehead normally. No gait instability. No other focal neurological changes. No change in vision. The patient is also concerned because her father and apparently her paternal aunt both had multiple sclerosis. Timing/Duration: other - 3 days Severity: moderate Improving Factors: nothing Worsening Factors: nothing Associated Symptoms: headaches, malaise Allergies/Adverse Reactions: Allergies Eggs or Egg-derived Products Allergy (Mild, Verified 02/11/20 13:00) Home Medications: Ambulatory Orders BuPROPion SR [Wellbutrin SR] 150 mg PO BID 11/24/19 cloNAZepam [Klonopin] 0.5 mg PO PRN 11/24/19 Acyclovir [Zovirax] 400 mg PO DAILY 02/11/20 Prednisone 10 mg PO BID 02/11/20 Prednisone 20 mg PO TID 02/11/20 Review of Systems - Review of Systems Constitutional: States: malaise EENTM: States: see HPI Respiratory: States: no symptoms reported Cardiology: States: no symptoms reported Gastrointestinal/Abdominal: States: no symptoms reported Genitourinary: States: no symptoms reported Musculoskeletal: States: no symptoms reported Skin: States: no symptoms reported Neurological: States: see HPI Endocrine: States: no symptoms reported All other Systems: No Change from Baseline Past Medical History (General) - Patient Medical History Hx Seizures: No Hx Stroke: No Hx Dementia: No Hx Asthma: No Hx of COPD: No Hx Cardiac Disorders: No Hx Congestive Heart Failure: No Hx Pacemaker: No Hx Hypertension: No Hx Thyroid Disease: No Hx Diabetes: No Hx Gastroesophageal Reflux: No Hx Renal Disease: No Hx Cancer: No Hx of HIV: No Hx Hepatitis C: No Hx MRSA: No Surgical History: appendectomy - Vaccination History Hx Tetanus, Diphtheria Vaccination: No Hx Influenza Vaccination: No Hx Pneumococcal Vaccination: No - Social History Hx Tobacco Use: No Hx Alcohol Use: Yes Hx Substance Use: No Hx Substance Use Treatment: No Hx Depression: No Hx Physical Abuse: No Hx Emotional Abuse: No - Female History Hx Last Menstrual Period: 04/12/13 Patient : No Expected Date of Delivery:: 12/26/13 Family Medical History - Family History Maternal Family History: No Known Mother Family History: Unknown Living Status: Unknown Hx Family Hypertension: Yes Hx Family Diabetes: Yes Hx Family;Other: DAD-multiple sclerosis Physical Exam - Physical Exam General Appearance: Alert, Anxious, No apparent distress Eye Exam: bilateral normal Ears, Nose, Throat: hearing grossly normal, normal pharynx, other - Symmetrical elevation of the palate. Tongue protrusion is symmetrical. No loss of taste or smell. Nares are clear with clear rhinorrhea. Mild increased pressure to the right tympanic membrane but no obvious infection. Neck: full range of motion, supple Respiratory: lungs clear, normal breath sounds, no respiratory distress, no accessory muscle use Cardiovascular/Chest: normal peripheral pulses, regular rate, rhythm, no edema Peripheral Pulses: radial,right: 2+, radial,left: 2+ Gastrointestinal/Abdominal: non tender, soft Rectal Exam: deferred Extremity: normal range of motion, non-tender, normal inspection, no pedal edema, normal capillary refill Neurologic: portal developer II-XII nml as tested, no motor/sensory deficits - See history of present illness., alert, normal mood/affect, oriented x 3 Skin Exam: normal color Comments: Vital Signs - 24 hr 02/11/20 02/11/20 02/11/20 13:07 14:00 15:06 Temperature 100.2 F H Pulse Rate [ 88 78 Left Radial] Respiratory 20 16 20 Rate Blood Pressure 155/101 121/71 [Left Arm] O2 Sat by Pulse 99 97 Oximetry Progress - Progress Progress: 02/11/20 15:22 The patient is a 34-year-old female presenting secondary to a headache with a question of early background Cristobal's palsy versus trigeminal neuralgia versus other. The patient has a slight temperature elevation but no technical fever at this point. No focal neurological deficits that are definite. There may be a slight asymmetry in the smile but no asymmetry with forehead movement or opening and closing of the eyes. She does have some tenderness over bilateral temporal areas. She also has some discomfort behind the right ear and at the base of the right occipital area. ESR was 0 making temporal arteritis seem significantly unlikely. Head CT was reassuring, helping to rule out gross structural pathologies and mastoiditis and sinusitis. White blood cell count was within normal limits. TSH was within normal limits. The patient is concerned about the possibility of this being the first symptoms of multiple sclerosis, given her family history. While I think that is unlikely, I cannot say definitively that that is not the case. Obviously if the patient symptoms worsen or become more convincing for that and, then MRI and lumbar puncture and a visit with neurologist may be warranted. Per neurology recommend the patient continue the steroids and antiviral written by her primary care doctor. If the patient develops a rash on her face, then she needs to be reevaluated to see if shingles is developing. Keep routine follow-up with primary care doctor. ER warnings are given. jl lee [id number] - Results/Orders Results/Orders: Laboratory Tests 02/11/20 02/11/20 02/11/20 13:34 13:34 13:34 WBC 5.9 RBC 5.06 Hgb 15.0 Hct 43.7 MCV 86.4 MCH 29.7 MCHC 34.4 RDW 13.4 Plt Count 255 MPV 8.0 Absolute Neuts (auto) 4.90 Absolute Lymphs (auto) 0.80 L Absolute Monos (auto) 0.10 L Absolute Eos (auto) 0.00 Absolute Basos (auto) 0.00 Neutrophils % 83.1 H Lymphocytes % 14.4 L Monocytes % 1.8 L Eosinophils % 0.1 L Basophils % 0.6 ESR 0 D-Dimer, Quantitative Sodium 138 Potassium 4.0 Chloride 105 Carbon Dioxide 24 Anion Gap 13.0 BUN 17 Creatinine 0.70 BUN/Creatinine Ratio 24.3 H Random Glucose 125 H Serum Osmolality 278.7 Calcium 9.2 Magnesium 2.1 Total Bilirubin 0.5 AST 16 ALT 19 Alkaline Phosphatase 39 L Creatine Kinase 60 CK-MB (CK-2) 0.6 CK-MB (CK-2) % Not Reportable Troponin I < 0.02 C-Reactive Protein < 0.5 Serum Total Protein 7.6 Albumin 4.5 Globulin 3.1 Albumin/Globulin Ratio 1.5 TSH 0.98 Serum HCG, Qual Group A Strep Rapid 02/11/20 02/11/20 02/11/20 13:34 13:48 14:33 WBC RBC Hgb Hct MCV MCH MCHC RDW Plt Count MPV Absolute Neuts (auto) Absolute Lymphs (auto) Absolute Monos (auto) Absolute Eos (auto) Absolute Basos (auto) Neutrophils % Lymphocytes % Monocytes % Eosinophils % Basophils % ESR D-Dimer, Quantitative < 131 L Sodium Potassium Chloride Carbon Dioxide Anion Gap BUN Creatinine BUN/Creatinine Ratio Random Glucose Serum Osmolality Calcium Magnesium Total Bilirubin AST ALT Alkaline Phosphatase Creatine Kinase CK-MB (CK-2) CK-MB (CK-2) % Troponin I C-Reactive Protein Serum Total Protein Albumin Globulin Albumin/Globulin Ratio TSH Serum HCG, Qual Negative Group A Strep Rapid Negative Rapid flu is negative. Head CT shows no acute intracranial pathology. - EKG/XRAY/CT CT Ordered: Yes Departure - Departure Clinical Impression: Viral cephalgia Disposition: Discharge to Home or Self Care Condition: Fair Departure Forms: ED Discharge - Pt. Copy, Patient Portal Self Enrollment Diet: regular diet Activity: increase activity as tolerated Referrals: Judson Samaniego MD [Primary Care Provider] - 1-5 Days Home Medications: Ambulatory Orders BuPROPion SR [Wellbutrin SR] 150 mg PO BID 11/24/19 cloNAZepam [Klonopin] 0.5 mg PO PRN 11/24/19 Acyclovir [Zovirax] 400 mg PO DAILY 02/11/20 Prednisone 10 mg PO BID 02/11/20 Prednisone 20 mg PO TID 02/11/20 Additional Instructions: The patient is a 34-year-old female presenting secondary to a headache with a question of early background Cristobal's palsy versus trigeminal neuralgia versus other. The patient has a slight temperature elevation but no technical fever at this point. No focal neurological deficits that are definite. There may be a slight asymmetry in the smile but no asymmetry with forehead movement or opening and closing of the eyes. She does have some tenderness over bilateral temporal areas. She also has some discomfort behind the right ear and at the base of the right occipital area. ESR was 0 making temporal arteritis seem significantly unlikely. Head CT was reassuring, helping to rule out gross structural pathologies and mastoiditis and sinusitis. White blood cell count was within normal limits. TSH was within normal limits. The patient is concerned about the possibility of this being the first symptoms of multiple sclerosis, given her family history. While I think that is unlikely, I cannot say definitively that that is not the case. Obviously if the patient symptoms worsen or become more convincing for that and, then MRI and lumbar puncture and a visit with neurologist may be warranted. Per neurology recommend the patient continue the steroids and antiviral written by her primary care doctor. If the patient develops a rash on her face, then she needs to be reevaluated to see if shingles is developing. Keep routine follow-up with primary care doctor. ER warnings are given.
[2020-02-11 15:24] VITALS: BP 143/85; O2SAT 98
[2020-02-11 15:40] VITALS: TEMP 99.5
== END 2020-02-11 15:32 | disposition home or self-care (01) ==
LOC: ER 12:44
DX: R51 Headache (principal); R50.9 Fever, unspecified; R53.81 Other malaise

== ENCOUNTER 2020-02-25 22:31 | Emergency (ER) | payer SELFPAY ==
[2020-02-25] MEDS ORDERED: ASPIRIN TABLET 325 MG TAB PO ONE (22:46)
--- NOTE | 2020-02-25 22:48 | ED.PDOC ---
History of Present Illness - General Chief Complaint: Cardiovascular Problem Time Seen by Provider: 02/25/20 22:32 Source: patient Exam Limitations: no limitations - History of Present Illness Initial Comments: Pt says she's had intermittent sharp mid lower chest pain over the past few days. Denies cough, SOB, fever. No radiation. No allevating or exacerbating factors. Pt has IUD but no OCP's. Pt without cardiac history and without DVT/PE history. Pt says she has history of anxiety and thinks it may be related. Severity/Quality: mild, moderate, sharp Location: epigastric Chest Pain Radiation: no radiation Activities at Onset: none Prior Chest Pain/Cardiac Workup: no prior chest pain, no prior cardiac workup Improving Factors: nothing Worsening Factors: nothing Associated Symptoms: denies symptoms Allergies/Adverse Reactions: Allergies Eggs or Egg-derived Products Allergy (Mild, Verified 02/11/20 13:00) Home Medications: Ambulatory Orders RX: BuPROPion SR [Wellbutrin SR] 150 mg PO BID 11/24/19 RX: cloNAZepam [Klonopin] 0.5 mg PO PRN 11/24/19 Acyclovir [Zovirax] 400 mg PO DAILY 02/11/20 RX: Prednisone 10 mg PO BID 02/11/20 RX: Prednisone 20 mg PO TID 02/11/20 Review of Systems - Review of Systems Constitutional: States: no symptoms reported. Denies: chills, diaphoresis, fever, malaise EENTM: States: no symptoms reported Respiratory: States: no symptoms reported. Denies: cough, orthopnea, short of breath, wheezing Cardiology: States: no symptoms reported, chest pain, palpitations. Denies: edema, syncope Gastrointestinal/Abdominal: States: no symptoms reported. Denies: abdominal pain, constipation, diarrhea, nausea, vomiting Genitourinary: States: no symptoms reported Musculoskeletal: States: no symptoms reported. Denies: back pain, muscle pain Skin: States: no symptoms reported Neurological: States: anxiety. Denies: depressed, headache Past Medical History (General) - Patient Medical History Hx Seizures: No Hx Stroke: No Hx Dementia: No Hx Asthma: No Hx of COPD: No Hx Cardiac Disorders: No Hx Congestive Heart Failure: No Hx Pacemaker: No Hx Hypertension: No Hx Thyroid Disease: No Hx Diabetes: No Hx Gastroesophageal Reflux: No Hx Renal Disease: No Hx Cancer: No Hx of HIV: No Hx Hepatitis C: No Hx MRSA: No - Vaccination History Hx Tetanus, Diphtheria Vaccination: No Hx Influenza Vaccination: No Hx Pneumococcal Vaccination: No - Social History Hx Tobacco Use: No Hx Alcohol Use: Yes Hx Substance Use: No Hx Substance Use Treatment: No Hx Depression: No Hx Physical Abuse: No Hx Emotional Abuse: No - Female History Hx Last Menstrual Period: 04/12/13 Patient : No Expected Date of Delivery:: 12/26/13 Family Medical History - Family History Maternal Family History: No Known Mother Family History: Unknown Living Status: Unknown Hx Family Hypertension: Yes Hx Family Diabetes: Yes Hx Family;Other: DAD-multiple sclerosis Physical Exam - Physical Exam General Appearance: Alert, No apparent distress Neck: non-tender, full range of motion, supple Respiratory: chest non-tender, lungs clear, normal breath sounds, no respiratory distress, no accessory muscle use Cardiovascular/Chest: normal peripheral pulses, no edema, no gallop, tachycardia - minimal, 95-105 bpm Gastrointestinal/Abdominal: normal bowel sounds, non tender, soft, no org anomegaly, no pulsatile mass Extremity: non-tender, no pedal edema, no calf tenderness Neurologic: alert, normal mood/affect Skin Exam: normal color Progress - Progress Progress: 02/25/20 23:37 Pt resting comfortably in no distress. Vitals still unremarkable, occasional minimal tachycardia. Workup below: 02/25/20 22:45 EKG Assessment ONCE EKG STAT 02/26/20 22:45 EKG STAT Laboratory Results - last 24 hr 02/25/20 02/25/20 02/25/20 23:05 23:05 23:05 WBC 7.5 RBC 4.69 Hgb 13.9 Hct 40.6 MCV 86.6 MCH 29.7 MCHC 34.3 RDW 13.5 Plt Count 279 MPV 7.9 Absolute Neuts (auto) 4.40 Absolute Lymphs (auto) 2.40 Absolute Monos (auto) 0.50 Absolute Eos (auto) 0.20 Absolute Basos (auto) 0.10 Neutrophils % 58.3 Lymphocytes % 32.1 Monocytes % 6.1 Eosinophils % 2.5 Basophils % 1.0 Sodium 138 Potassium 3.9 Chloride 107 Carbon Dioxide 23 Anion Gap 11.9 L BUN 13 Creatinine 0.60 BUN/Creatinine Ratio 21.7 H Random Glucose 150 H Serum Osmolality 278.7 Calcium 9.0 Total Bilirubin 0.3 AST 13 ALT 17 Alkaline Phosphatase 41 L Troponin I < 0.02 Serum Total Protein 6.6 Albumin 4.0 Globulin 2.6 Albumin/Globulin Ratio 1.5 Lipase 24 EXAM DESCRIPTION: Chest,1 View CLINICAL HISTORY: CP COMPARISON: None. FINDINGS: Single frontal view of the chest. Cardiomediastinal silhouette: Normal size and contour. Lungs: No consolidation, pneumothorax, or pleural effusion. Bones: No acute osseous abnormality. Upper abdomen: No abnormality identified. IMPRESSION: 1. No acute pulmonary process identified. Electronically signed by: Clarke Pereira 02/25/2020 10:57 PM CDT D/w pt above results, including elevated BS. I asked pt to follow with PCP next available and return if worsens. Pt admitted anxiety may be component. Departure - Departure Clinical Impression: Chest pain, atypical Time of Disposition: 23:39 Disposition: Discharge to Home or Self Care Condition: Fair Departure Forms: ED Discharge - Pt. Copy, Patient Portal Self Enrollment Instructions: DI for Chest Pain Diet: resume usual diet Activity: increase activity as tolerated Referrals: Judson Samaniego MD [Primary Care Provider] - 1-2 Weeks Home Medications: Ambulatory Orders RX: BuPROPion SR [Wellbutrin SR] 150 mg PO BID 11/24/19 RX: cloNAZepam [Klonopin] 0.5 mg PO PRN 11/24/19 Acyclovir [Zovirax] 400 mg PO DAILY 02/11/20 RX: Prednisone 10 mg PO BID 02/11/20 RX: Prednisone 20 mg PO TID 02/11/20
--- NOTE | 2020-02-25 22:58 | RAD ---
EXAM DESCRIPTION: Chest,1 View CLINICAL HISTORY: CP COMPARISON: None. FINDINGS: Single frontal view of the chest. Cardiomediastinal silhouette: Normal size and contour. Lungs: No consolidation, pneumothorax, or pleural effusion. Bones: No acute osseous abnormality. Upper abdomen: No abnormality identified. IMPRESSION: 1. No acute pulmonary process identified. Electronically signed by: Clarke Pereira 02/25/2020 10:57 PM CDT
[2020-02-26 00:01] VITALS: BP 118/74; O2SAT 95
[2020-02-26 00:05] VITALS: TEMP 96.8
== END 2020-02-26 00:04 | disposition home or self-care (01) ==
LOC: ER 22:31
DX: R07.89 Other chest pain (principal)